=== PATIENT | female | born 2000 | race Caucasian/White ===

== ENCOUNTER 2020-08-10 13:58 | Outpatient (REF) | payer OTHER, SELFPAY ==
[2020-08-11 12:47] LABS: CT PCR NOT DETECTED (Not Detect.); NG PCR NOT DETECTED (Not Detect.)
== END 2020-08-10 13:59 | disposition home or self-care (01) ==
LOC: HO.LAB 13:58
PROVIDERS: PCP Internal Medicine; Visit Provider Advanced Practice Midwife
DX: Z01.419 Encounter for gynecological examination (general) (routine) without abnormal findings (principal); Z11.3 Encounter for screening for infections with a predominantly sexual mode of transmission; Z20.2 Contact with and (suspected) exposure to infections with a predominantly sexual mode of transmission; B00.9 Herpesviral infection, unspecified
CPT/HCPCS: 87491; 87591

== ENCOUNTER → 2022-03-13 12:37 | Outpatient (BNVA) | payer OTHER, SELFPAY | PROVIDERS: PCP Internal Medicine; Visit Provider Advanced Practice Midwife | DX: Z13.89 Encounter for screening for other disorder (principal) ==

== ENCOUNTER → 2022-10-07 10:00 | Outpatient (BNVA) | payer OTHER, SELFPAY | PROVIDERS: PCP Internal Medicine; Visit Provider Physician Assistant Medical | DX: M70.842 Other soft tissue disorders related to use, overuse and pressure, left hand (principal) | CPT/HCPCS: 99203 ==

== ENCOUNTER → 2022-10-28 09:41 | Outpatient (BNVA) | payer OTHER, SELFPAY | PROVIDERS: PCP Internal Medicine; Visit Provider Physician Assistant Medical | DX: M70.842 Other soft tissue disorders related to use, overuse and pressure, left hand (principal) | CPT/HCPCS: 99213 ==

== ENCOUNTER 2023-02-18 08:06 | Outpatient (AMB) | payer OTHER, SELFPAY ==
--- NOTE | 2023-02-18 08:32 | MHC.OFFWIV ---
Intake Vital Signs 02/18/23 08:33 Height 5 ft 3 in Weight 131 lb BMI 23.2 BP 116/68 Blood Pressure Location Rt brachial Position Sitting Pulse 84 Pulse Source Pulse Oximeter Temp 97.3 F Temp Source Temporal Artery Scan Pulse Oximetry (%) 98 Oxygen Delivery Method Room Air Intake Visit Reasons: EP stuffy nose congestion [id number] Intake Note: pt is here today for stuffy nose congestion started last Patient Tobacco Use Status: Never used Tobacco Allergies No Known Allergies [No Known Allergies*] Allergy (Verified 02/18/23 08:41) Do you need a note to return to daycare/school/sports/work: Yes HPI HPI Comments History of Present Illness Details Sandy is a 22yo F who presents for cold symptoms Work wanted her evaluated because she left erly yesterday Last onset of symptoms Worst is ST rates as 06/16 She has been taking DayQuil/NyQuil without relief + facial pressure She said + fullness in ears ith coughing She sad Cough worse at night No SOB or CP PFSH Medical History Depression Depression with anxiety Surgical History No pertinent past surgical history Family History Father No problems noted. Mother No problems noted. Maternal Grandmother Lung cancer Diabetes mellitus Maternal Grandfather Diabetes mellitus Brother No problems noted. Sister No problems noted. 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[employer]) Current occupational exposures/hazards: No Sexual orientation: Straight/Heterosexual Gender identity: Female Female Reproductive History Menstrual Age of Menarche: 11 Review of Systems Const Denies chills, Reports fatigue, Denies fever(s) and Reports headache(s) ENT Reports facial pain, Reports headache(s), Reports nasal congestion, Reports sinus pressure, Reports sore throat and Denies throat swelling Card Denies chest pain, Denies chest pain at rest and Denies dyspnea Resp Reports cough and Denies dyspnea Neuro Reports headache(s) Endo Reports fatigue Aller/Immun Denies throat swelling Physical Exam Vital Signs: Last Vital Signs Temp 97.3 F 02/18/23 08:33 Pulse 84 02/18/23 08:33 BP 116/68 02/18/23 08:33 Pulse Ox 98 02/18/23 08:33 Oxygen Delivery Method Room Air 02/18/23 08:33 BMI result Body Mass Index 23.2 General: Non-toxic, NAD. Speaking full sentences. Skin: Warm dry throughout Eye: EOMI HENT: +clear rhinorrhea. Airway patent. Uvula midline. Minimal pharyngeal erythema or edema. No CREDIT CARD CONTROL CLERK. Bilateral canals clear. TM non-erythematous, non-bulging. No TM perforation or hemotympanum noted. Respiratory: CTA bilaterally. No wheezes, rales or rhonchi Cardiac: RRR. No murmur MSK: Full ROM extremities. Neurology: A/O No aphasia or facial droop. Gait without abnormality Psych: Good mood and affect Results Reviewed Results Reviewed: Rapid stre negative in ofice Assessment & Plan Assessment & Plan (1) Upper respiratory disease: Code(s): J39.9 - Disease of upper respiratory tract, unspecified Plan Pt seen and evaluated Strep negative Lungs CTAVital stable Symptoms x 6 days Tessalon Tylenol/Motrin Fluids/rest F/U with PCP Work note given Patient gave verbal understanding and had no additional questions or concerns at time of discharge All questions answered Medications: New benzonatate 100 mg PO TID PRN 14 caps 0RF cough J39.9 - Disease of upper respiratory tract, unspecified Coding Level of Care Code Est Pt Level 3 (29730) Diagnoses Upper respiratory disease J39.9
[2023-02-18 08:33] VITALS: BP 116/68; PULSE 84; TEMP 36.3; O2SAT 98; BMI 23.2
== END 2023-02-18 09:15 | disposition home or self-care (01) ==
PROVIDERS: PCP Internal Medicine; Visit Provider Physician Assistant
DX: J39.9 Disease of upper respiratory tract, unspecified (principal)
CPT/HCPCS: 99213

== ENCOUNTER 2023-04-16 10:24 | Outpatient (REF) | payer OTHER, SELFPAY ==
[2023-04-16 16:14] LABS: CT PCR NOT DETECTED (Not Detect.); NG PCR NOT DETECTED (Not Detect.)
== END 2023-04-16 10:25 | disposition home or self-care (01) ==
LOC: HO.LNP 10:24
PROVIDERS: PCP Internal Medicine; Visit Provider Advanced Practice Midwife
DX: Z01.419 Encounter for gynecological examination (general) (routine) without abnormal findings (principal); Z20.2 Contact with and (suspected) exposure to infections with a predominantly sexual mode of transmission
CPT/HCPCS: 0353U; 88142

== ENCOUNTER 2023-04-16 10:24 | Outpatient (AMB) | payer OTHER, SELFPAY ==
--- NOTE | 2023-04-16 10:31 | MHC.OFFVIS ---
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 Doing well with no concerns. She requests refills on Valtrex suppression therapy. She tries to eat healthy and stays active with exercise. Regular monthly menses, ran out of her BC pills two weeks ago. She denies any contraindications to control such as: migraines with aura, history of DVT or pulmonary emboli, high blood pressure, liver disease, thrombolic disorders, Lupus, +MARIJA, breast cancer, or smoking. Currently is not sexually active. She denies vaginal itching and irritation. STI screening offered; she accepts. Denies family history of breast, ovarian or colon cancer. Last pap smear 2019, negative. [facility] Medical History Depression with anxiety Depression Surgical History No pertinent past surgical history Family History Father No problems noted. Mother No problems noted. Maternal Grandmother Lung cancer Diabetes mellitus Maternal Grandfather Diabetes mellitus Brother No problems noted. Sister No problems noted. Paternal Aunt Mental health disorder Social History Housing: Other Housing Other:: Pt lives with parents Alcohol intake: current Alcohol intake frequency: a few times a month Patient Tobacco Use Status: Never used Tobacco e-Cigarette/Vaping Use: Currently Using Second Hand Smoke Exposure: No service: No Current occupational status: employed Current occupation: [employer] Current occupational exposures/hazards: No Sexual orientation: Straight/Heterosexual Gender identity: Female Female Reproductive History Menstrual Age of Menarche: 11 Duration of menses: 3-5 days Date of last menstrual period: 04/02/23 control method: pills Total pregnancies: 0 Date of last pap smear: 07/14/19 (neg ) Review of Systems Const All systems reviewed & are unremarkable except as noted in HPI and below Reports as per HPI Eyes Reports no additional complaints ENT Reports no additional complaints Card Reports no additional complaints Resp Reports no additional complaints GI Reports as per HPI and Reports no additional complaints Reports as per HPI Musc Reports no additional complaints Skin/Breast Reports as per HPI Neuro Reports no additional complaints Psych Reports no additional complaints Endo Reports no additional complaints Bandar/Lymph Reports no additional complaints Aller/Immun Reports no additional complaints Physical Exam Vital Signs: Last Vital Signs BP 110/76 04/16/23 10:39 BMI result Body Mass Index 0.2 Const General: cooperative, healthy appearing, no acute distress, well developed and alert Orientation/consciousness: patient oriented x3 HEENT Head: Yes normal to inspection Eyes General: appearance normal, both eyes and all related structures Neck Neck: Yes normal visual inspection Thyroid: Thyroid normal Chest Chest palpation & inspection: normal inspection of the chest and other (no puckering, dimpling, peau de orange, retraction, discharge, masses) Breast/axilla inspection: normal inspection of the breasts Breast/axilla palpation: normal palpation of the breasts Resp Effort & Inspection: normal respiratory effort GI Inspection: Yes normal to inspection Palpation (GI): Soft to palpation Rectal Exam - Female: deferred General: Yes bladder normal to palpation External Female Exam: normal external appearance and normal appearance of the urethra Speculum Exam - Vagina: normal appearance of the vagina, normal palpation, normal vaginal discharge and other Speculum Exam - Cervix: normal appearance of the cervix, normal palpation and Other cervical findings present (Bled slightly with Pap) Bimanual exam- vagina & uterus: normal bimanual exam, normal palpation, uterine size normal, bladder normal to palpation, normal palpation and non-tender Bimanual Exam- Adnexa, other: no masses Skin General skin exam: no rashes or lesions noted Rashes: no rashes Neuro General: patient oriented x3 Cognition (Neuro): normal cognition Extrem General: Yes normal to inspection Psych Attitude: cooperative Thought process: Normal thought process present Assessment & Plan Assessment & Plan (1) Encounter for well woman exam with routine gynecological exam: Code(s): Z01.419 - Encounter for gynecological examination (general) (routine) without abnormal findings Plan Discussed: Current recommendations for pap smears per ASCCP guidelines. Breast awareness and periodic breast exams. Maintain a healthy lifestyle including a well balanced diet and routine exercise. Use condoms for STI and prevention. control hormone use warnings: go to ER if and loss of vision, blindness, severe headache, chest pain or difficulty breathing, severe abdominal pain, or any pain or swelling in an extremity. Patient verbalizes understanding and agrees to the plan of care. She was given opportunity to ask questions and all questions were answered to the best of my ability. RTO in one year for annual offal baler examination. This note is constructed using voice recognition software. While every effort has been made to ensure accuracy, research professor errors may have been included. Orders: Orders CT NG by PCR Today Z20.2 - Contact with and (suspected) exposure to infections with a predominantly sexual mode of transmission Pap Smear Today Z01.419 - Encounter for gynecological examination (general) (routine) without abnormal findings Medications: Changed From valacyclovir (Valtrex) 500 mg PO DAILY 30 days PRN 30 tabs 11RF med To valacyclovir (Valtrex) Daily suppression therapy 500 mg PO DAILY 30 days 90 tabs 4RF med Refilled norgestimate-ethinyl estradiol 0.18/0.215/0.25 mg-35 mcg (28) 1 tab PO DAILY 28 days 84 tabs 4RF Coding Level of Care Code Est Pt Prev Care 18-39y(40678) Diagnoses Encounter for well woman exam with routine gynecological exam Z01.419
[2023-04-16 10:39] VITALS: BP 110/76
== END 2023-04-16 11:06 | disposition home or self-care (01) ==
PROVIDERS: PCP Internal Medicine; Visit Provider Advanced Practice Midwife
DX: Z01.419 Encounter for gynecological examination (general) (routine) without abnormal findings (principal)
CPT/HCPCS: 99395

== ENCOUNTER 2024-04-19 10:05 | Outpatient (AMB) | payer OTHER, SELFPAY ==
--- NOTE | 2024-04-19 10:09 | MHC.OFFVIS ---
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 Doing well with no general internal medicine doctor concerns. Doing well on OCPs and wants refill. She denies any contraindications to control such as: migraines with aura, history of DVT or pulmonary emboli, high blood pressure, liver disease, thrombolic disorders, Lupus, +MARIJA, breast cancer, or smoking. Currently is sexually active. She denies vaginal itching and irritation. STI screening offered; she accepts. She tries to eat healthy and stays active with exercise. Denies family history of breast, ovarian or colon cancer. Last pap smear 2023, negative. [facility] Medical History Depression with anxiety Depression Surgical History No pertinent past surgical history Family History Father No problems noted. Mother No problems noted. Maternal Grandmother Lung cancer Diabetes mellitus Maternal Grandfather Diabetes mellitus Brother No problems noted. Sister No problems noted. Paternal Aunt Mental health disorder Social History Housing: Other Housing Other:: Pt lives with parents Alcohol intake: current Alcohol intake frequency: a few times a month Patient Tobacco Use Status: Never used Tobacco e-Cigarette/Vaping Use: Currently Using Second Hand Smoke Exposure: No service: No Current occupational status: employed Current occupation: [employer] Current occupational exposures/hazards: No Sexual orientation: Straight/Heterosexual Gender identity: Female Female Reproductive History Menstrual Age of Menarche: 11 Date of last menstrual period: 04/13/24 control method: pills Total pregnancies: 0 Date of last pap smear: 04/15/23 (neg) Review of Systems Const All systems reviewed & are unremarkable except as noted in HPI and below Reports as per HPI Eyes Reports no additional complaints ENT Reports no additional complaints Card Reports no additional complaints Resp Reports no additional complaints GI Reports as per HPI and Reports no additional complaints Reports as per HPI Musc Reports no additional complaints Skin/Breast Reports as per HPI Neuro Reports no additional complaints Psych Reports no additional complaints Endo Reports no additional complaints Bandar/Lymph Reports no additional complaints Aller/Immun Reports no additional complaints Physical Exam Vital Signs: Last Vital Signs BP 120/84 04/19/24 10:13 BMI result Body Mass Index 21.8 Const General: cooperative, healthy appearing, no acute distress, well developed and alert Orientation/consciousness: patient oriented x3 HEENT Head: Yes normal to inspection Eyes General: appearance normal, both eyes and all related structures Neck Neck: Yes normal visual inspection Thyroid: Thyroid normal Chest Chest palpation & inspection: normal inspection of the chest and other (no puckering, dimpling, peau de orange, retraction, discharge, masses) Breast/axilla inspection: normal inspection of the breasts Breast/axilla palpation: normal palpation of the breasts Resp Effort & Inspection: normal respiratory effort GI Inspection: Yes normal to inspection Palpation (GI): Soft to palpation Rectal Exam - Female: deferred General: Yes bladder normal to palpation External Female Exam: normal external appearance and normal appearance of the urethra Speculum Exam - Vagina: normal appearance of the vagina, normal palpation and normal vaginal discharge Speculum Exam - Cervix: normal appearance of the cervix and normal palpation Bimanual exam- vagina & uterus: normal bimanual exam, normal palpation, uterine size normal, bladder normal to palpation, normal palpation and non-tender Bimanual Exam- Adnexa, other: no masses Skin General skin exam: no rashes or lesions noted Rashes: no rashes Neuro General: patient oriented x3 Cognition (Neuro): normal cognition Extrem General: Yes normal to inspection Psych Attitude: cooperative Thought process: Normal thought process present Assessment & Plan Assessment & Plan (1) Encounter for well woman exam with routine gynecological exam: Code(s): Z01.419 - Encounter for gynecological examination (general) (routine) without abnormal findings Category: Medical Plan Discussed: Current recommendations for pap smears per ASCCP guidelines. Breast awareness and periodic breast exams. Maintain a healthy lifestyle including a well balanced diet and routine exercise. Use condoms for STI and prevention. chlamydia and BV panel obtained await results for plan of care. control hormone use warnings: go to ER if and loss of vision, blindness, severe headache, chest pain or difficulty breathing, severe abdominal pain, or any pain or swelling in an extremity. Patient verbalizes understanding and agrees to the plan of care. She was given opportunity to ask questions and all questions were answered to the best of my ability. RTO in one year for annual general internal medicine doctor examination. This note is constructed using voice recognition software. While every effort has been made to ensure accuracy, business operations specialist errors may have been included. Medications: Refilled norgestimate-ethinyl estradiol 0.18/0.215/0.25 mg-35 mcg (28) 1 tab PO DAILY 28 days 84 tabs 4RF Coding Level of Care Code Est Pt Prev Care 18-39y(69963) Diagnoses Encounter for well woman exam with routine gynecological exam Z01.419
[2024-04-19 10:13] VITALS: BP 120/84; BMI 21.8
--- OUTSIDE RECORDS SUMMARY | 2024-04-19 11:12 | XMS_ITS | Data Portability ---
Author Organization AZEEM Tubbs s, [address] Address [address] [place] [address] Assessment No assessment recorded. Plan of Treatment Reminders Order Date Submit Date Provider Last Modified By Organization Details Last Modified Time Details Appointments None recorded. Lab urinalysis , dipstick 2022 023 [place] [address] 2[address]_[facility], [address] [place] [address], [phone], 3 09:17:46 test, urine 2022 023 [place] [address] 2[facility], [address] [place] [address], [phone], 3 09:17:46 culture, urine 2022 023 [place] [facility], [address] [place] [address], [place], [address], 3 08:07:19 Referral None recorded. Procedures None recorded. Surgeries None recorded. Imaging None recorded. Medication Orders Macrobid 100 mg capsule 2022 023 [id number], [address] [place] [address], [id number], 3 11:47:12 ibuprofen 600 mg tablet 2022 023 [id number], [address], [place], [id number], 12:02:02 Patient TargetsNo targets recorded. Patient Instructions Encounter Date Encounter Id Patient Instructions Last Modified By Organization Details Last Modified Time 10/04/2022 [id number] hand sprain: car e instructions [email or web address] Not available 10/04/2022 12:00:37 wrist tendonitis education [email or web address] Not available 10/04/2022 12:00:37 learning about rice (rest, ice, compression, and elevation) [email or web address] Not available 10/04/2022 12:02:53 Purchase and wea r a left thumb spica splint as instructed. Take the ibuprofen as prescribed if needed for pain. See printed instructions and work duty note. Return to [facility] 10/11/2022 for re-evaluation. Seek Emergency Medical evaluation for any worsening symptoms. [email or web address] Not available 10/04/2022 12:03:46 Reason for Referral None Reported. Results Created Date Observation Date Name Description Value Unit Range Abnormal Flag Note LastModifiedBy Organization Detail LastModifiedTime 03/18/1903/22/2022 URINE CULTU RE, JIMI NE urine culture, routine FINAL REPORT abnormal Not Available [facility] ([facility]) [address] [facility], [place], [address], 03/22/2022 12:06:00 03/18/1903/22/2022 URINE CULTU RE, ROUTI NE result 1 ESCHER ICHIA COLI abnormal 50,00 0-100 ,000 colon y formi ng units per mL Cefaz myesha <=4 ug/mL Cefaz myesha with an IAN <=16 predi cts susce ptibi lity to the oral agent s cefac tierra, cefdi renuka, cefpo doxim e, cefpr ozil, cefur oxime , cepha lexin , and lorac arbef when used for thera py of uncom plica manny urina ry tract infec tions due to E. coli, Klebs iella pneum oniae , and Prote us mirab ilis. Not Available [facility] ([facility]) [address] [facility], [place], [address], 03/22/2022 12:06:00 03/18/1903/22/2022 URINE CULTU RE, ROUTI NE antimicrobia l susceptibili ty COMMEN T S = Susce ptibl e; I = Inter media te; R = Resis tant P = Posit suasn; N = Negat susan MICS are expre ssed in micro grams per mL Antib iotic RSLT# 1 RSLT# 2 RSLT# 3 RSLT# 4 Amoxi cilli n/Cla vulan ic Acid S Ampic illin S Cefep nanci S Ceftr iaxon e S Cefur oxime S Cipro floxa ralph S Ertap enem S Genta micin S Imipe nem S Levof loxac in S Merop enem S Nitro furan toin S Piper acill in/Ta zobac cole S Tetra cycli ne S Tobra mycin S Trime thopr im/Gonzalez lfa S Not Available [facility] ([facility]) [address] [facility], [place], [address], 03/22/2022 12:06:00 03/18/1903/18/2022 urina lysis , dipst ick Unknown Analyte Normal = light yellow Not Available [address], [address], 03/18/2022 08:52:57 03/18/19 23 03/18/2022 urina lysis , dipst ick Unknown Analyte Normal = clear Not Available [address] [place] [address], [address], 03/18/2022 08:52:57 03/18/1903/18/2022 urina lysis , dipst ick Unknown Analyte Normal = negati ve Not Available [address] [place] [address], [address], 03/18/2022 08:52:57 03/18/19 23 03/18/2022 urina lysis , dipst ick Unknown Analyte Normal = Negati ve Not Available [address] [address], [place], [address], 03/18/2022 08:52:57 03/18/1903/18/2022 urina lysis , dipst ick Unknown Analyte Normal = Negati ve Not Available [facility] [address], [place], [address], 03/18/2022 08:52:57 03/18/1903/18/2022 urina lysis , dipst ick Unknown Analyte Normal = 1.010, 1.015, 1.020 Not Available [facility] [address], [place], [address], 03/18/2022 08:52:57 03/18/1903/18/2022 urina lysis , dipst ick Unknown Analyte Normal = Negati ve Not Available [address] [place] [address], [place], [address], 03/18/2022 08:52:57 03/18/1903/18/2022 urina lysis , dipst ick Unknown Analyte Normal = 6.5, 7.0, 7.5, 8.0 Not Available [address] [place] [address], [place], [address], 03/18/2022 08:52:57 03/18/1903/18/2022 urina lysis , dipst ick Unknown Analyte Normal = Negati ve Not Available [facility] [address], [place], [address], 03/18/2022 08:52:57 03/18/1903/18/2022 urina lysis , dipst ick Unknown Analyte Normal = 0.2, 1.0 Not Available [address] [place] [address], [place], [address], 03/18/2022 08:52:57 03/18/19 23 03/18/2022 urina lysis , dipst ick Unknown Analyte Normal = Negati ve Not Available yudith sánchez [address], [place], [address], 03/18/2022 08:52:57 03/18/19 23 03/18/2022 urina lysis , dipst ick Unknown Analyte Normal = Negati ve Not Available yudith sánchez [address], [place], [address], 03/18/2022 08:52:57 03/18/1903/18/2022 urina lysis , dipst ick Unknown Analyte Light Yellow Not Available yudith sánchez [address], [place], [place], [address], 03/18/2022 08:52:57 03/18/1903/18/2022 urina lysis , dipst ick Unknown Analyte Clear Not Available cait [address], [place], [address], 03/18/2022 08:52:57 03/18/19 23 03/18/2022 urina lysis , dipst ick Unknown Analyte Negati ve Not Available yudith sánchez [address], [place], [address], 03/18/2022 08:52:57 03/18/19 23 03/18/2022 urina lysis , dipst ick Unknown Analyte Negati ve Not Available yudith sánchez [address], [place], [address], 03/18/2022 08:52:57 03/18/19 23 03/18/2022 urina lysis , dipst ick Unknown Analyte Negati ve Not Available yudith sánchez [address], [place], [address], 03/18/2022 08:52:57 03/18/19 23 03/18/2022 urina lysis , dipst ick Unknown Analyte <=1.00 5 Not Available yudith sánchez [address], [place], [address], 03/18/2022 08:52:57 03/18/1903/18/2022 urina lysis , dipst ick Unknown Analyte Modera te Not Available yudith [address], [place], [address], 03/18/2022 08:52:57 03/18/1903/18/2022 urina lysis , dipst ick Unknown Analyte 6.0 Not Available [address], [place], [address], 03/18/2022 08:52:57 03/18/1903/18/2022 urina lysis , dipst ick Unknown Analyte Negati ve Not Available yudith [address], [place], [address], 03/18/2022 08:52:57 03/18/19 23 03/18/2022 urina lysis , dipst ick Unknown Analyte 0.2 E.U./d L Not Available [address], [place], [address], 03/18/2022 08:52:57 03/18/19 23 03/18/2022 urina lysis , dipst ick Unknown Analyte Negati ve Not Available yudith [address], [place], [address], 03/18/2022 08:52:57 03/18/19 23 03/18/2022 urina lysis , dipst ick Unknown Analyte Small Not Available [facility] [address] [facility] [place], [address], 03/18/2022 08:52:57 03/18/1903/18/2022 pregn freda test, urine Unknown Analyte Normal = Negati ve Not Available [address]_y[facility] [address] [facility] [place], [address], 03/18/2022 08:52:57 03/18/19 23 03/18/2022 pregn freda test, urine Unknown Analyte negati ve Not Available [address]yud[facility] [address] [address] [facility] [place], [address], 03/18/2022 08:52:57 Result Notes None recorded. 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 Medical Equipment None Reported. Allergies No known drug allergies Medications Name Sig Start Date Stop Date Status Note LastModified by Organization Details LastModified Time valacyclovi r 500 mg tablet TAKE 1 TABLET BY MOUTH DAILY NEEDED active Not Available Not Available No t Available ibuprofen 600 mg tablet Take 1 tablet 4 times a day by oral route as needed. 2022 active Not Available Not Available Not Avai lable sertraline 50 mg tablet TAKE 1 TABLET BY MOUTH EVERY DAY DIRECTED 03/18 completed Not Available Not Available Not Available escitalopra m 10 mg tablet TAKE 1 TABLET BY MOUTH DAILY 03/18 completed Not Available Not Available Not Available escitalopra m 20 mg tablet TAKE 1 TABLET BY MOUTH DAILY 03/18 completed Not Available Not Available Not Available Tri-Sprinte c (28) 0.18 mg(7)/0.215 mg(7)/0.25 mg(7)-35 mcg tablet TAKE 1 TABLET BY MOUTH DAILY active Not Available Not Available No t Available nitrofurant oin monohydrate /macrocryst als 100 mg capsule TAKE 1 CAPSULE BY MOUTH EVERY 12 HOURS FOR 5 DAYS 10/04 completed Not Available Not Available Not Available Vitals Date Recorded Body height Body mass index (BMI) Body weight Pain severity - 0-10 verbal numeric rating [Score] - Reported Oxygen saturation Oxygen saturation in Arterial blood by Pulse oximetry Heart rate Systolic blood pressure Diastolic blood pressure Provider Name and Address Organization Details Last Updated DateTime 3 160.02 cm 24.8 kg/m2 49046.9 3 g 4 100 % 100 % 91 /min 106 mm[Hg] 66 mm[Hg] MELISSA POLANCO PA - [facility] 3 11:50:03 Date Recorded Body height Body mass index (BMI) Body weight Body temperature Respiratory rate Heart rate Oxygen saturation Oxygen saturation in Arterial blood by Pulse oximetry Systolic blood pressure Diastolic blood pressure Provider Name and Address Organization Details Last Updated DateTime 3 160.02 cm 23 kg/m2 08639.0 1 g 97.9 [degF] 18 /min 88 /min 100 % 100 % 113 mm[Hg] 72 mm[Hg] BHUMI Ba PA - [facility] 3 08:56:40 Social History Question Answer Notes LastModified by [employer] Goat ion Details LastModified Time Tobacco Smoking Status Current Every Day Smoker MELISSA babb PA - [facility] 10/04/2022 11:47:43 What Is Your Level Of Alcohol Consumption? Occasional Information not available 03/18/2022 Are You Currently Employed? Yes Information not available 10/04/2022 What Is Your Water Source? City Information not available 03/18/2022 What Is Your Heat Source? Gas Information not available 03/18/2022 Have You Had Direct Contact, Or Contact During Intimacy, With Monkeypox Rash, Scabs, Or Body Fluids From A Person With Monkeypox? No Information not available 03/18/2022 How Much Tobacco Do You Smoke? 1 PPW Information not available 10/04/2022 Do You Use Any Illicit Or Recreational Drugs? No Information not available 03/18/2022 Have You Recently Traveled Abroad? No Information not available 03/18/2022 Do You Or Have You Ever Used Any Other Forms Of Tobacco Or Nicotine? No Information not available 03/18/2022 Sex: Unknown Functional Status None recorded. Mental Status None recorded. Family History Relationship Description Onset Age of this Age Resolved Age Notes LastModified by Organization Details LastModified Time Father No current problems or disability Not available 08:54:43 Mother No current problems or disability Not available 08:54:43 Medical History No medical history recorded. Gynecological History Statement/Question Response Date of LMP 09/13/2022 Is there any chance of ? No Obstetrics History GPAL:G 0 P 0 0 0 0 Immunizations Vaccine Type Date Status Note Provider Nam e and Address Organization Details Recorded Time COVID-19, mRNA, LNP-S, PF, 30 mcg/0.3 mL dose 1 completed MELISSA COLLIN null, PA - [facility] 10/04/2022 11:46:56 COVID-19, mRNA, LNP-S, PF, 30 mcg/0.3 mL dose 1 completed MELISSA COLLIN null, PA - [facility] 10/04/2022 11:46:56 HPV, quadrivalent 5 completed MELISSA COLLIN null, PA - [facility] 10/04/2022 11:46:56 meningococcal MCV4P 7 completed MELISSA COLLIN null, PA - [facility] 10/04/2022 11:46:57 Past Encounters Encounter ID Performer Location Encounter Start Date Encounter Closed Date Diagnosis/Indication Diagnosis SNOMED-CT Code Diagnosis ICD10 Code Diagnosis Note [id number] [facility] [address] [place] [address] 11/26/2020 08:06:53 11/26/2020 08:59:08 [id number] [address] [address] 10/22/2018 08:58:55 10/22/2018 09:28:48 [id number] [address] [address] 01/01/2019 08:27:20 01/01/2019 09:35:06 [id number] [address] [facility] [place] [address] 03/31/2020 08:18:40 03/31/2020 10:21:44 [id number] [facility] [address] [facility] [address] 10/12/2018 09:13:25 10/12/2018 09:42:19 [id number] [address] [facility] [address] 10/21/2018 11:17:02 10/21/2018 11:42:50 [id number] [address] [place] [address] [place] [address] 02/21/2018 12:24:20 02/21/2018 13:14:18 [id number] Oneil Cody MD [address] [facility] [address] 03/18/2022 08:28:24 03/18/2022 09:32:30 Acute urinary tract infection 060146823 N39.0 Advised to drink clear fluids. Azo otc can be used for burning Patient encouraged to follow up within 1 week if not improving. [id number] Serenity Shaw MD [address] [address] [place] [address] [place] [address] 10/04/2022 11:39:43 10/04/2022 12:38:11 Strain of muscle of left hand 1600642432 1751488 S66.912A Tendinitis of left wrist region 2361099915 1849336 M67.834 Health Concerns Section Related Observation LastModified by Organization Detai ls LastModified Time None Recorded Concern Status LastModified by Organization Details LastModified Time None Recorded Advance Directives Directive None Recorded Payers Encounter Date Sequence Insurance Name Policy Number Policy [employer] Covered Member ID [place] Member ID Guarantor Name 01/01/2019 1 [facility] [id number] 1 Maggie Small [id number] Maggie Small 03/31/2020 1 [facility] [id number] 1 Dezaray Small [id number] Dezaray Small 11/26/2020 1 [facility] [id number] 1 Dezaray Small [id number] Dezaray Small 03/18/2022 1 [facility] [id number] 1 Dezaray Small [id number] Dezaray Small 10/04/2022 [employer] Dezaray Small Notes Date Note Type Note Provider Name and Address Organization Details Recorded Time 3 text/html Urinary Complaint FemaleReported bypatient.UTI Symptoms:no blood in the urine; no vaginal discharge; no fever/chills; no known exposure to STD;pain during urination;urgency;urina ry frequency;flank pain Severity:mild Duration:started ; 3 days Oneil Cody MD [address] [place], [address], [employer] 03/18/2022 09:29:21 3 text/html Wrist/Hand Injury UCReported bypatient.source of patient informationPatient arrived at Urgent Care ambulatory Location:left; hand; wrist Associated Symptoms:no redness; no ecchymosis; no fever Severity:moderate Duration:10/03/2022 Context:work injury Aggravating Factors:lifting; carrying; gripping; ROM Assistive devices:None. Previous InjuryNo prior injury to affected body part Previous Treatmentnone Prior Imaging:noneNotes:22 year old female presenting for evaluation of left hand and wrist pain after an injury at work yesterday. 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 Her pain is localized over her left thenar eminence and volar left wrist between the radius and ulna. No numbness or weakness of the hand and wrist but she notes occasional tingling in her 4th and 5th fingertips. He pain is worse with palpation and movement. No swelling, redness or bruising noted. Serenity Shaw MD [address] [place], [address], [facility] 10/04/2022 12:13:42 OBGyn Episode No OBEpisode recorded.
== END 2024-04-19 13:19 | disposition home or self-care (01) ==
PROVIDERS: PCP Internal Medicine; Visit Provider Advanced Practice Midwife
DX: Z01.419 Encounter for gynecological examination (general) (routine) without abnormal findings (principal)
CPT/HCPCS: 99395; 99459

== ENCOUNTER 2024-04-19 10:05 | Outpatient (REF) | payer OTHER, SELFPAY ==
[2024-04-19 22:17] LABS: Bacterial Vaginosis PCR NEGATIVE (Negative); Candida Group PCR NOT DETECTED (Not Detect); Candida glab krusei PCR NOT DETECTED (Not Detect); Trichomonas vaginalis PCR NOT DETECTED (Not Detect)
[2024-04-20 04:13] LABS: CT PCR NOT DETECTED (Not Detect.); NG PCR NOT DETECTED (Not Detect.)
== END 2024-04-19 10:06 | disposition home or self-care (01) ==
LOC: HO.LAB 10:05
PROVIDERS: PCP Internal Medicine; Visit Provider Advanced Practice Midwife
DX: Z01.419 Encounter for gynecological examination (general) (routine) without abnormal findings (principal); Z20.2 Contact with and (suspected) exposure to infections with a predominantly sexual mode of transmission
CPT/HCPCS: 81515; 87491; 87591

== ENCOUNTER 2024-04-19 10:27 | Outpatient (REF) | payer OTHER, SELFPAY | END 2024-04-19 10:28 | disposition home or self-care (01) | LOC: HO.LNP 10:27 | PROVIDERS: Visit Provider Advanced Practice Midwife | DX: Z13.89 Encounter for screening for other disorder (principal) ==